=== PATIENT | female | born 1980 | race Caucasian/White ===

== ENCOUNTER 2017-02-07 14:48 | Emergency (ER) | payer BC ==
[~2017-02-07] VITALS: Ht 180.3 cm; Wt 116.0 kg
[2017-02-07 15:20] LABS: HEMATOCRIT 42.6 % (36.0-46.0); MCH 27.1 PG (29.0-34.0); MCHC 31.9 G/DL (30.0-36.0); MCV 84.9 FL (83-99); MEAN PLAT.VOLUME 9.8 uM^3 (9.5-12.4); PLATELET COUNT 356 K/uL (156-360); RBC DIS.WIDTH-CV 15.2 % (11.8-14.6); RBC DIS.WIDTH-SD 46.8 % (39-53); RED BLOOD COUNT 5.02 M/uL (3.80-5.20); WHITE BLOOD COUNT 12.4 K/uL (4.1-10.2)
[2017-02-07 15:29] LABS: ADD MIUA? YES; BILIRUBIN NEGATIVE; BLOOD SMALL; COLOR YELLOW ((YELLOW)); GLUCOSE (STRIP) NEGATIVE; KETONES NEGATIVE; LEUKOCYTES LARGE; NITRITE NEGATIVE; PROTEIN (STRIP) NEGATIVE; SPECIFIC GRAVITY 1.016 (1.000-1.030); UROBILINOGEN 0.2 MG/DL (0.2-1.0)
[2017-02-07 15:30] LABS: CHLORIDE 108 mEq/L (99-109); POTASSIUM 4.6 mEq/L (3.7-5.4); SODIUM 140 mEq/L (136-147)
[2017-02-07 15:32] LABS: GLUCOSE 89 mg/dL (70-99); PROTHROMBIN TIME 9.8 (9.2-11.2); PTT 29.9 (25-32)
[2017-02-07 15:33] LABS: ANION GAP 9 MEQ/L (2-14)
[2017-02-07 15:34] LABS: TOTAL BILIRUBIN 0.3 mg/dL (0.0-1.0)
[2017-02-07 15:35] LABS: BACTERIA NONE SEEN /HPF; EPITHELIAL CELLS 2+ /HPF; MUCUS TRACE /LPF
[2017-02-07 15:36] LABS: ALKALINE PHOSPHATASE 82 IU/L (3-129); GFR ESTIMATE (CALCULATED) > 59 mL/min/
[2017-02-07 15:37] LABS: UREA NITROGEN (BUN) 9 mg/dL (9-23)
[2017-02-07 15:39] LABS: LIPASE 19 U/L (1.0-51.0)
[2017-02-07] MEDS ORDERED: ZOFRAN ODT4 MG PO (18:08)
[2017-02-07] MEDS ORDERED: PERCOCET 5/31 TABLET PO (18:08)
[2017-02-07] MEDS ORDERED: VALIUM5 MG PO (18:08)
[2017-02-07 18:23] VITALS: BP 122/56
== END 2017-02-07 18:24 | disposition home or self-care (01) ==
LOC: EME 14:48 → EXP 14:48
PROVIDERS: Physician Assistant
DX: S32.018A Other fracture of first lumbar vertebra, initial encounter for closed fracture (principal); S30.0XXA Contusion of lower back and pelvis, initial encounter; W01.198A Fall on same level from slipping, tripping and stumbling with subsequent striking against other object, initial encounter; Y92.34 Swimming pool (public) as the place of occurrence of the external cause; R31.29 Other microscopic hematuria; F17.200 Nicotine dependence, unspecified, uncomplicated
CPT/HCPCS: 74177; 80053; 81003; 83690; 85027; 85610; 85730; 86900; 86901; 99281; 99284; J7030